=== PATIENT | female | born 1975 | race Hispanic/Latino ===

== ENCOUNTER 2016-09-25 05:45 | Inpatient (IN) | payer OTHER ==
[2016-09-25 06:44] LABS: Hematocrit 41.3 % (30.3-42.9); Hemoglobin 13.5 gm/dl (10.1-14.3); Mean Corpuscular HGB Conc 33 % (30-34); Mean Corpuscular Volume 79 fl (79-97); Platelet Count 292 K/mm3 (140-440); Red Blood Count 5.23 M/mm3 (3.65-5.03); Red Cell Distribution Width 15.9 % (13.2-15.2)
[2016-09-25 06:53] LABS: Mean Corpuscular Hemoglobin 26 pg (28-32); White Blood Count 24.2 K/mm3 (4.5-11.0)
[2016-09-25 07:02] LABS: Anion Gap 21 mmol/L; BUN/Creatinine Ratio 7.69; Blood Urea Nitrogen 10 mg/dL (7-17); Calcium 9.2 mg/dL (8.4-10.2); Carbon Dioxide 23 mmol/L (22-30); Chloride 92.8 mmol/L (98-107); Glucose 153 mg/dL (65-100); Potassium 3.5 mmol/L (3.6-5.0); Sodium 133 mmol/L (137-145)
[2016-09-25 08:13] LABS: Bacteria,Urine 1+ /HPF (Negative); Bilirubin,Urine NEG (Negative); Blood,Urine MOD (Negative); Ketones,Urine NEG (Negative); Leukocyte Esterase,Urine LG (Negative); Mucus,Urine FEW /HPF; Nitrite,Urine NEG (Negative); Urobilinogen,Urine < 2.0 mg/dL (<2.0)
[2016-09-25 08:41] LABS: Basophils % (Manual) 0 % (0.0-1.8); Blastocytes % (Manual) 0 %; Eosinophils % (Manual) 0 % (0.0-4.3); Hypochromasia 1+
[2016-09-25 08:42] LABS: Diff Status Complete
[2016-09-25] MEDS ORDERED: NACL 0.9% 1000 ML 1,000 ML IV ONE ×4 (08:53→17:00)
[2016-09-25] MEDS ORDERED: LEVAQUIN 750MG/150ML 750 MG/150 ML BAG IV ONE (08:54)
[2016-09-25] MEDS ORDERED: TORADOL IV ONE (09:01)
[2016-09-25] MEDS ORDERED: SUBLIMAZE IV ONE (09:01)
[2016-09-25] MEDS ORDERED: REGLAN IV ONE (09:01)
--- NOTE | 2016-09-25 09:06 | Admit Criteria Form ---
<FLORA BARNHART - Last Filed: 09/25/16 11:01> Admission Criteria Documentation: SEPSIS and OTHER FEBRILE ILLNESS, W/O FOCAL INFECTION Clinical Indications for Admission to Inpatient Care ( Place 'X' for any and all applicable criteria): Admission is indicated for ANY ONE of the following (1)(2)(3)(4): [X] I. Bacteremia []II. Suspected or identified specific infection requiring hospitalization (eg, meningitis, endocarditis) [ ]III. Hemodynamic instability [ ]IV. Altered mental status [ ]V. Failure or unavailability of outpatient antimicrobial treatment [ ]. Hypoxemia [ ]VII. Seizures [ ]VIII. High-risk febrile neutropenia [ ]IX. Need for parenteral antibiotic in patient who is likely to abuse vascular access device (eg, injection drug user) [A](7) [ ]X. Temperature greater than 104.9 degrees F (40.5 degrees C) (oral) [X]XI. Inpatient admission required rather than observation care because of ANY ONE of the following: [X]1) Specific infection identified that is too severe for outpatient treatment or observation care trial [ ]2) Metabolic disorder (eg, hypoglycemia, hyperglycemia, metabolic acidosis) that is severe or persistent [ ]3) Temperature greater than 103.1 degrees F (39.5 degrees C) ( oral) that is not responsive to observation care treatment [ ]4) IV fluid to replace significant ongoing (eg, for over 24 hours) losses (> 3 L/m2 per day) [ ]5) Supplemental oxygen or respiratory treatments for over 24 hours that is performable only in acute inpatient setting [ ]6) Parenteral nutrition regimen need that must be implemented on inpatient basis [ ]7) Strict or protective (eg, laminar flow) isolation [ ]8) Other condition, treatment or monitoring requiring inpatient admission Extended stay beyond goal length of stay may be needed for(1)(3) [ ]a) Sepsis or septic shock(22) [ ]b) Positive blood cultures [ ]c) Insufficient oral intake [ ]d) High-risk febrile neutropenia(29)(30) [ ]e) Continued fever and clinical instability [ ]f) Clinically active comorbid illness (e.g,heart failure, renal failure , diabetes) The original [facility] content created by Raul Hector has been revised. The portions of the content which have been revised are identified through the use of italic text or in bold, and [facility] has neither reviewed nor approved the modified material. All other unmodified content is copyright [facility]. Please see references footnoted in the original [facility] edition 2016 Admission Criteria Met: Yes <TANIA DARNELL M - Last Filed: 09/25/16 16:47> Admission Criteria Documentation: PATIENT DOES NOT HAVE CONFIRMED BACTEREMIA, BLOOD CULTURES STILL PENDING BEING ADMITTED FOR SEPSIS DUE TO UTI, AND SEPSIS WITH HYPOTENSION. Admission Criteria Met: Yes
--- NOTE | 2016-09-25 09:08 | Emergency Department Report ---
HPI - General Chief Complaint: Urogenital-Female Time Seen by Provider: 09/25/16 08:52 - HPI HPI: Room 10 The patient is a 41-year-old female presenting with a chief complaint of dysuria and back pain. The patient states for 1 week she has had dysuria. The patient states approximately 3 days ago she developed pain in the left back which then spread to encompass both sides. Today she developed a subjective fever associated with chills. Patient describes the pain as sharp and throbbing in nature. Patient admits to nausea but denies vomiting or diarrhea. The patient currently gives her pain a score of 7/10 Location: Bilateral flanks Duration: One week Quality: Sharp and throbbing Severity:7/10 Modifying factors: [see above] Context: [see above] Mode of transportation: Unknown ED Past Medical Hx - Past Medical History Previous Medical History?: No - Surgical History Past Surgical History?: No - Family History Family history: no significant - Social History Smoking Status: Current Every Day Smoker (one pack per day) Substance Use Type: None ED Review of Systems ROS: Stated complaint: BACK PAIN/PAINFUL URINATION/FEVER/SOB Other details as noted in HPI Comment: All other systems reviewed and negative Constitutional: chills, fever (subjective) Eyes: denies: eye pain, eye discharge, vision change ENT: denies: ear pain, throat pain Respiratory: denies: cough, shortness of breath, wheezing Cardiovascular: denies: chest pain, palpitations Endocrine: no symptoms reported Gastrointestinal: nausea. denies: abdominal pain, vomiting, diarrhea Genitourinary: dysuria. denies: urgency, discharge Musculoskeletal: back pain Skin: denies: rash, lesions Neurological: denies: headache, weakness, paresthesias Psychiatric: denies: anxiety, depression Hematological/Lymphatic: denies: easy bleeding, easy bruising Physical Exam - Physical Exam Vital Signs: Vital Signs 09/25/16 09/25/16 09/25/16 05:57 06:43 06:50 Temperature 98.3 F Pulse Rate 132 H 126 H Respiratory 28 H 20 18 Rate Blood Pressure 125/82 113/72 Blood Pressure [Right] O2 Sat by Pulse 98 96 96 Oximetry 09/25/16 08:17 Temperature Pulse Rate 120 H Respiratory 22 Rate Blood Pressure Blood Pressure 117/67 [Right] O2 Sat by Pulse 96 Oximetry Physical Exam: GENERAL: The patient is well-developed well-nourished female lying on stretcher not appearing to be in acute distress. [] HEENT: Normocephalic. Atraumatic. Extraocular motions are intact. Patient has moist mucous membranes. NECK: Supple. Trachea midline CHEST/LUNGS: Clear to auscultation. There is no respiratory distress noted. HEART/CARDIOVASCULAR: Regular. There is tachycardia. There is no gallop rub or murmur. ABDOMEN: Abdomen is soft, nontender. Patient has normal bowel sounds. There is no abdominal distention. SKIN: There is no rash. There is no edema. There is no diaphoresis. NEURO: The patient is awake, alert, and oriented. The patient is cooperative. The patient has normal speech MUSCULOSKELETAL: There is bilateral CVA tenderness. There is no evidence of acute injury. ED Course Vital Signs 09/25/16 09/25/16 09/25/16 05:57 06:43 06:50 Temperature 98.3 F Pulse Rate 132 H 126 H Respiratory 28 H 20 18 Rate Blood Pressure 125/82 113/72 Blood Pressure [Right] O2 Sat by Pulse 98 96 96 Oximetry 09/25/16 08:17 Temperature Pulse Rate 120 H Respiratory 22 Rate Blood Pressure Blood Pressure 117/67 [Right] O2 Sat by Pulse 96 Oximetry ED Medical Decision Making - Lab Data Result diagrams: 09/25/16 06:34 09/25/16 06:34 Laboratory Tests 09/25/16 09/25/16 09/25/16 06:34 06:34 06:34 WBC 24.2 H RBC 5.23 H Hgb 13.5 Hct 41.3 MCV 79 MCH 26 L MCHC 33 RDW 15.9 H Plt Count 292 Add Manual Diff Complete Total Counted 100 Seg Neutrophils % Packaging Engineer Seg Neuts % (Manual) 84.0 H Band Neutrophils % 10.0 Lymphocytes % (Manual) 4.0 L Reactive Lymphs % (Man) 0 Monocytes % (Manual) 2.0 Eosinophils % (Manual) 0 Basophils % (Manual) 0 Metamyelocytes % 0 Myelocytes % 0 Promyelocytes % 0 Blast Cells % 0 Nucleated RBC % Not Reportable Seg Neutrophils # Man 20.3 H Band Neutrophils # 2.4 Lymphocytes # (Manual) 1.0 L Abs React Lymphs (Man) 0.0 Monocytes # (Manual) 0.5 Eosinophils # (Manual) 0.0 Basophils # (Manual) 0.0 Metamyelocytes # 0.0 Myelocytes # 0.0 Promyelocytes # 0.0 Blast Cells # 0.0 WBC Morphology Not Reportable Hypersegmented Neuts Not Reportable Hyposegmented Neuts Not Reportable Hypogranular Neuts Not Reportable Smudge Cells Not Reportable Toxic Granulation Not Reportable Toxic Vacuolation Not Reportable Dohle Bodies Not Reportable Pelger-Huet Anomaly Not Reportable Norm Rods Not Reportable Platelet Estimate Appears normal Clumped Platelets Not Reportable Plt Clumps, EDTA Not Reportable Large Platelets Not Reportable Giant Platelets Not Reportable Platelet Satelliting Not Reportable Plt Morphology Comment Not Reportable RBC Morphology Not Reportable Dimorphic RBCs Not Reportable Polychromasia Not Reportable Hypochromasia 1+ Poikilocytosis Not Reportable Anisocytosis Not Reportable Microcytosis Not Reportable Macrocytosis Not Reportable Spherocytes Not Reportable Pappenheimer Bodies Not Reportable Sickle Cells Not Reportable Target Cells Not Reportable Tear Drop Cells Not Reportable Ovalocytes Not Reportable Helmet Cells Not Reportable [place] Bodies Not Reportable [place] Rings Not Reportable [place] Cells Not Reportable Bite Cells Not Reportable Crenated Cell Not Reportable Elliptocytes Not Reportable Acanthocytes (Spur) Not Reportable Rouleaux Not Reportable Hemoglobin C Crystals Not Reportable Schistocytes Not Reportable Malaria parasites Not Reportable Nj Bodies Not Reportable Hem Pathologist Commnt No Sodium 133 L Potassium 3.5 L Chloride 92.8 L Carbon Dioxide 23 Anion Gap 21 BUN 10 Creatinine 1.3 H Estimated GFR 46 BUN/Creatinine Ratio 7.69 Glucose 153 H Lactic Acid Calcium 9.2 Troponin T < 0.010 Urine Color Yellow Urine Turbidity Slightly-cloudy Urine pH 6.0 Ur Specific [place] 1.005 Urine Protein 100 mg/dl Urine Glucose (UA) Neg Urine Ketones Neg Urine Blood Mod Urine Nitrite Neg Ur Reducing Substances Not Reportable Urine Bilirubin Neg Urine Ictotest Not Reportable Urine Urobilinogen < 2.0 Ur Leukocyte Esterase Lg Urine WBC (Auto) 91.0 H Urine RBC (Auto) 6.0 U Epithel Cells (Auto) 8.0 Urine Bacteria (Auto) 1+ Urine Mucus Few Urine HCG, Qual Negative 09/25/16 06:34 WBC RBC Hgb Hct MCV MCH MCHC RDW Plt Count Add Manual Diff Total Counted Seg Neutrophils % Seg Neuts % (Manual) Band Neutrophils % Lymphocytes % (Manual) Reactive Lymphs % (Man) Monocytes % (Manual) Eosinophils % (Manual) Basophils % (Manual) Metamyelocytes % Myelocytes % Promyelocytes % Blast Cells % Nucleated RBC % Seg Neutrophils # Man Band Neutrophils # Lymphocytes # (Manual) Abs React Lymphs (Man) Monocytes # (Manual) Eosinophils # (Manual) Basophils # (Manual) Metamyelocytes # Myelocytes # Promyelocytes # Blast Cells # WBC Morphology Hypersegmented Neuts Hyposegmented Neuts Hypogranular Neuts Smudge Cells Toxic Granulation Toxic Vacuolation Dohle Bodies Pelger-Huet Anomaly Norm Rods Platelet Estimate Clumped Platelets Plt Clumps, EDTA Large Platelets Giant Platelets Platelet Satelliting Plt Morphology Comment RBC Morphology Dimorphic RBCs Polychromasia Hypochromasia Poikilocytosis Anisocytosis Microcytosis Macrocytosis Spherocytes Pappenheimer Bodies Sickle Cells Target Cells Tear Drop Cells Ovalocytes Helmet Cells Walker-[place] Bodies [place] Rings [place] Cells Bite Cells Crenated Cell Elliptocytes Acanthocytes (Spur) Rouleaux Hemoglobin C Crystals Schistocytes Malaria parasites Nj Bodies Hem Pathologist Commnt Sodium Potassium Chloride Carbon Dioxide Anion Gap BUN Creatinine Estimated GFR BUN/Creatinine Ratio Glucose Lactic Acid 3.0 H* Calcium Troponin T Urine Color Urine Turbidity Urine pH Ur Specific [place] Urine Protein Urine Glucose (UA) Urine Ketones Urine Blood Urine Nitrite Ur Reducing Substances Urine Bilirubin Urine Ictotest Urine Urobilinogen Ur Leukocyte Esterase Urine WBC (Auto) Urine RBC (Auto) U Epithel Cells (Auto) Urine Bacteria (Auto) Urine Mucus Urine HCG, Qual - Differential Diagnosis : Nephritis, UTI Critical care attestation.: If time is entered above; I have spent that time in minutes in the direct care of this critically ill patient, excluding procedure time. ED Disposition Clinical Impression: Acute pyelonephritis, Leukocytosis, Bilateral flank pain Disposition: OP ADMITTED IP TO THIS HOSP Is pt being admited?: Yes Does the pt Need Aspirin: Yes Condition: Serious Referrals: PRIMARY CARE, [Primary Care Provider] - 3-5 Days Time of Disposition: 09:11 (hospitalist paged)
[2016-09-25] MEDS ORDERED: TYLENOL PO PRN (10:16)
[2016-09-25] MEDS ORDERED: MILK OF MAGNESIA PO PRN (10:16)
[2016-09-25] MEDS ORDERED: ZOFRAN IV PRN (10:16)
--- NOTE | 2016-09-25 10:16 | History and Physical Report ---
History of Present Illness Chief complaint: flank pain History of present illness: 41-year-old woman with no significant past medical history who presented 1 week old dysuria, in the past few days she has not developed left-sided flank pain which then spread to both flanks. She's also been complaining of subjective fever and chills. She is complaining of weakness, malaise. She notes that the flank pain is sharp 7 out of 10, and throbbing in nature. She admits to nausea but denies any vomiting or any diarrhea. Since presenting to the ER and getting some IV fluids she admits feeling better. Past History Past Medical History: No medical history Past Surgical History: No surgical history Social history: smoking (1 pack per day since age 16) Family history: no significant family history Medications and Allergies Allergies Allergy/AdvReac Type Severity Reaction Status Date / Time No Known Allergies Allergy Unverified 09/25/16 05:52 Active Meds: Active Medications Levofloxacin/Dextrose (Levaquin 750mg/150ml) 750 mg in 150 mls @ 100 mls/hr IV ONCE ONE Stop: 09/25/16 10:23 Last Admin: 09/25/16 09:18 Dose: 100 mls/hr Review of Systems All systems: negative Constitutional: fever, chills Gastrointestinal: nausea Genitourinary Female: flank pain, dysuria, other (flank pain) Exam - Constitutional Vitals: Temp Pulse Resp BP Pulse Ox 98.3 F 111 H 20 117/76 95 09/25/16 05:57 09/25/16 09:37 09/25/16 09:37 09/25/16 09:37 09/25/16 09:37 General appearance: Present: no acute distress, well-nourished, other (toxic appearance) - EENT Eyes: Present: PERRL ENT: hearing intact, clear oral mucosa - Neck Neck: Present: supple, normal ROM - Respiratory Respiratory effort: normal Respiratory: bilateral: CTA - Cardiovascular Heart Sounds: Present: S1 & S2. Absent: rub, click - Extremities Extremities: pulses symmetrical, No edema Peripheral Pulses: within normal limits - Abdominal General gastrointestinal: Present: soft, non-tender, non-distended, normal bowel sounds Female genitourinary: Present: normal - Integumentary Integumentary: Present: clear, warm, dry - Musculoskeletal Musculoskeletal: gait normal, strength equal bilaterally - Psychiatric Psychiatric: appropriate mood/affect, intact judgment & insight - Neurologic Neurologic: CNII-XII intact, moves all extremities Results - Labs CBC & Chem 7: 09/25/16 06:34 09/25/16 06:34 Labs: Laboratory Last Values WBC 24.2 K/mm3 (4.5-11.0) H 09/25/16 06:34 RBC 5.23 M/mm3 (3.65-5.03) H 09/25/16 06:34 Hgb 13.5 gm/dl (10.1-14.3) 09/25/16 06:34 Hct 41.3 % (30.3-42.9) 09/25/16 06:34 MCV 79 fl (79-97) 09/25/16 06:34 MCH 26 pg (28-32) L 09/25/16 06:34 MCHC 33 % (30-34) 09/25/16 06:34 RDW 15.9 % (13.2-15.2) H 09/25/16 06:34 Plt Count 292 K/mm3 (140-440) 09/25/16 06:34 Add Manual Diff Complete 09/25/16 06:34 Total Counted 100 09/25/16 06:34 Seg Neutrophils % Stockroom Helper 09/25/16 06:34 Seg Neuts % (Manual) 84.0 % (40.0-70.0) H 09/25/16 06:34 Band Neutrophils % 10.0 % 09/25/16 06:34 Lymphocytes % (Manual) 4.0 % (13.4-35.0) L 09/25/16 06:34 Reactive Lymphs % (Man) 0 % 09/25/16 06:34 Monocytes % (Manual) 2.0 % (0.0-7.3) 09/25/16 06:34 Eosinophils % (Manual) 0 % (0.0-4.3) 09/25/16 06:34 Basophils % (Manual) 0 % (0.0-1.8) 09/25/16 06:34 Metamyelocytes % 0 % 09/25/16 06:34 Myelocytes % 0 % 09/25/16 06:34 Promyelocytes % 0 % 09/25/16 06:34 Blast Cells % 0 % 09/25/16 06:34 Nucleated RBC % Not Reportable 09/25/16 06:34 Seg Neutrophils # Man 20.3 K/mm3 (1.8-7.7) H 09/25/16 06:34 Band Neutrophils # 2.4 K/mm3 09/25/16 06:34 Lymphocytes # (Manual) 1.0 K/mm3 (1.2-5.4) L 09/25/16 06:34 Abs React Lymphs (Man) 0.0 K/mm3 09/25/16 06:34 Monocytes # (Manual) 0.5 K/mm3 (0.0-0.8) 09/25/16 06:34 Eosinophils # (Manual) 0.0 K/mm3 (0.0-0.4) 09/25/16 06:34 Basophils # (Manual) 0.0 K/mm3 (0.0-0.1) 09/25/16 06:34 Metamyelocytes # 0.0 K/mm3 09/25/16 06:34 Myelocytes # 0.0 K/mm3 09/25/16 06:34 Promyelocytes # 0.0 K/mm3 09/25/16 06:34 Blast Cells # 0.0 K/mm3 09/25/16 06:34 WBC Morphology Not Reportable 09/25/16 06:34 Hypersegmented Neuts Not Reportable 09/25/16 06:34 Hyposegmented Neuts Not Reportable 09/25/16 06:34 Hypogranular Neuts Not Reportable 09/25/16 06:34 Smudge Cells Not Reportable 09/25/16 06:34 Toxic Granulation Not Reportable 09/25/16 06:34 Toxic Vacuolation Not Reportable 09/25/16 06:34 Dohle Bodies Not Reportable 09/25/16 06:34 Pelger-Huet Anomaly Not Reportable 09/25/16 06:34 Norm Rods Not Reportable 09/25/16 06:34 Platelet Estimate Appears normal 09/25/16 06:34 Clumped Platelets Not Reportable 09/25/16 06:34 Plt Clumps, EDTA Not Reportable 09/25/16 06:34 Large Platelets Not Reportable 09/25/16 06:34 Giant Platelets Not Reportable 09/25/16 06:34 Platelet Satelliting Not Reportable 09/25/16 06:34 Plt Morphology Comment Not Reportable 09/25/16 06:34 RBC Morphology Not Reportable 09/25/16 06:34 Dimorphic RBCs Not Reportable 09/25/16 06:34 Polychromasia Not Reportable 09/25/16 06:34 Hypochromasia 1+ 09/25/16 06:34 Poikilocytosis Not Reportable 09/25/16 06:34 Anisocytosis Not Reportable 09/25/16 06:34 Microcytosis Not Reportable 09/25/16 06:34 Macrocytosis Not Reportable 09/25/16 06:34 Spherocytes Not Reportable 09/25/16 06:34 Pappenheimer Bodies Not Reportable 09/25/16 06:34 Sickle Cells Not Reportable 09/25/16 06:34 Target Cells Not Reportable 09/25/16 06:34 Tear Drop Cells Not Reportable 09/25/16 06:34 Ovalocytes Not Reportable 09/25/16 06:34 Helmet Cells Not Reportable 09/25/16 06:34 Walker[employer] Bodies Not Reportable 09/25/16 06:34 [place] Rings Not Reportable 09/25/16 06:34 [place] Cells Not Reportable 09/25/16 06:34 Bite Cells Not Reportable 09/25/16 06:34 Crenated Cell Not Reportable 09/25/16 06:34 Elliptocytes Not Reportable 09/25/16 06:34 Acanthocytes (Spur) Not Reportable 09/25/16 06:34 Rouleaux Not Reportable 09/25/16 06:34 Hemoglobin C Crystals Not Reportable 09/25/16 06:34 Schistocytes Not Reportable 09/25/16 06:34 Malaria parasites Not Reportable 09/25/16 06:34 Nj Bodies Not Reportable 09/25/16 06:34 Hem Pathologist Commnt No 09/25/16 06:34 Sodium 133 mmol/L (137-145) L 09/25/16 06:34 Potassium 3.5 mmol/L (3.6-5.0) L 09/25/16 06:34 Chloride 92.8 mmol/L (98-107) L 09/25/16 06:34 Carbon Dioxide 23 mmol/L (22-30) 09/25/16 06:34 Anion Gap 21 mmol/L 09/25/16 06:34 BUN 10 mg/dL (7-17) 09/25/16 06:34 Creatinine 1.3 mg/dL (0.7-1.2) H 09/25/16 06:34 Estimated GFR 46 ml/min 09/25/16 06:34 BUN/Creatinine Ratio 7.69 % 09/25/16 06:34 Glucose 153 mg/dL (65-100) H 09/25/16 06:34 Lactic Acid 3.0 mmol/L (0.7-2.0) H* 09/25/16 06:34 Calcium 9.2 mg/dL (8.4-10.2) 09/25/16 06:34 Troponin T < 0.010 ng/mL (0.00-0.029) 09/25/16 08:50 Urine Color Yellow (Yellow) 09/25/16 06:34 Urine Turbidity Slightly-cloudy (Clear) 09/25/16 06:34 Urine pH 6.0 (5.0-7.0) 09/25/16 06:34 Ur Specific [place] 1.005 (1.003-1.030) 09/25/16 06:34 Urine Protein 100 mg/dl mg/dL (Negative) 09/25/16 06:34 Urine Glucose (UA) Neg mg/dL (Negative) 09/25/16 06:34 Urine Ketones Neg mg/dL (Negative) 09/25/16 06:34 Urine Blood Mod (Negative) 09/25/16 06:34 Urine Nitrite Neg (Negative) 09/25/16 06:34 Ur Reducing Substances Not Reportable 09/25/16 06:34 Urine Bilirubin Neg (Negative) 09/25/16 06:34 Urine Ictotest Not Reportable 09/25/16 06:34 Urine Urobilinogen < 2.0 mg/dL (<2.0) 09/25/16 06:34 Ur Leukocyte Esterase Lg (Negative) 09/25/16 06:34 Urine WBC (Auto) 91.0 /HPF (0.0-6.0) H 09/25/16 06:34 Urine RBC (Auto) 6.0 /HPF (0.0-6.0) 09/25/16 06:34 U Epithel Cells (Auto) 8.0 /HPF (0-13.0) 09/25/16 06:34 Urine Bacteria (Auto) 1+ /HPF (Negative) 09/25/16 06:34 Urine Mucus Few /HPF 09/25/16 06:34 Urine HCG, Qual Negative (Negative) 09/25/16 06:34 Assessment and Plan Assessment and plan: 41-year-old woman with no significant past medical history who presented one week of dysuria which progressed to left-sided flank pain fevers and chills. Found to have sepsis due to UTI/pyelonephritis 1. Sepsis with hypotension Hypotension is responding to IV fluids Follow sepsis protocol, IV fluids, antibiotics. Blood and urine cultures, continue antibiotics 2. UTI Continue antibiotics, follow up urine cultures 3. Hypokalemia Replete IV 4. Vasomotor nephropathy IV fluids have been initiated 5. Hyponatremia normal saline 6. Nicotine abuse Patient was counseled, nicotine patch is offered Plan of care discussed with patient/family: Yes
[2016-09-25] MEDS ORDERED: NACL 0.9% 1000 ML 1,000 ML ONE (10:41)
[2016-09-25] MEDS ORDERED: DULCOLAX PR PRN (11:00)
[2016-09-25] MEDS ORDERED: NACL 0.9% 1000 ML 1,000 ML with KCL 20 MEQ IV SCH (11:00)
[2016-09-25] MEDS: PERCOCET 5/325 PO PRN ×2 (12:36→21:40)
[2016-09-25] MEDS: NS/KCL 20MEQ 20 MEQ/1,000 ML BAG IV SCH ×2 (12:38→23:34)
[2016-09-25] MEDS: HABITROL TD SCH (15:14)
[2016-09-26] MEDS: PERCOCET 5/325 PO PRN ×4 (03:37→23:12)
[2016-09-26 06:39] LABS: Basophils % (Auto) 0.3 % (0.0-1.8); Hematocrit 34.5 % (30.3-42.9); Mean Corpuscular HGB Conc 32 % (30-34); Mean Corpuscular Volume 80 fl (79-97); Platelet Count 223 K/mm3 (140-440); Red Blood Count 4.29 M/mm3 (3.65-5.03); Red Cell Distribution Width 16.4 % (13.2-15.2); White Blood Count 15.9 K/mm3 (4.5-11.0)
[2016-09-26 06:40] LABS: Mean Corpuscular Hemoglobin 26 pg (28-32)
[2016-09-26 06:52] LABS: BUN/Creatinine Ratio 8.57; Calcium 7.3 mg/dL (8.4-10.2); Chloride 101.9 mmol/L (98-107); Potassium 3.5 mmol/L (3.6-5.0)
[2016-09-26] MEDS: HABITROL TD SCH (09:14)
[2016-09-26] MEDS: NS/KCL 20MEQ 20 MEQ/1,000 ML BAG IV SCH ×2 (09:15→21:14)
[2016-09-26] MEDS ORDERED: LEVAQUIN 750MG/150ML 750 MG/150 ML BAG IV SCH (10:00)
[2016-09-26] MEDS ORDERED: K-DUR PO ONE (11:00)
[2016-09-26] MEDS: MORPHINE IV PRN (15:01)
--- NOTE | 2016-09-26 16:05 | Progress Note ---
Assessment and Plan Assessment and plan: 41-year-old woman with no significant past medical history who presented one week of dysuria which progressed to left-sided flank pain fevers and chills. Found to have sepsis due to UTI/pyelonephritis 1. Sepsis with hypotension Hypotension has resolved with IV fluids Follow sepsis protocol, IV fluids, antibiotics. Blood and urine cultures, continue antibiotics 2. UTI Continue antibiotics, urine cultures were taken after patient had already received antibiotics before cultures were and therefore it is nondiagnostic. Will be treated with empiric antibiotics 3. Hypokalemia Replete IV and by mouth 4. Vasomotor nephropathy IV fluids have been initiated 5. Hyponatremia improved with normal saline 6. Nicotine abuse Patient was counseled, continue nicotine patch History Interval history: continues to have flank pain in both sides, had fever this am Hospitalist Physical - Physical exam Narrative exam: General appearance: Present: no acute distress, well-nourished, other (toxic appearance) - EENT Eyes: Present: PERRL ENT: hearing intact, clear oral mucosa - Neck Neck: Present: supple, normal ROM - Respiratory Respiratory effort: normal Respiratory: bilateral: CTA - Cardiovascular Heart Sounds: Present: S1 & S2. Absent: rub, click - Extremities Extremities: pulses symmetrical, No edema Peripheral Pulses: within normal limits - Abdominal General gastrointestinal: Present: soft, non-tender, non-distended, normal bowel sounds Female genitourinary: Present: normal - Integumentary Integumentary: Present: clear, warm, dry - Musculoskeletal Musculoskeletal: gait normal, strength equal bilaterally - Psychiatric Psychiatric: appropriate mood/affect, intact judgment & insight - Neurologic Neurologic: CNII-XII intact, moves all extremities - Constitutional Vitals: Temp Pulse Resp BP Pulse Ox 101.8 F H 95 H 18 129/60 100 09/26/16 07:55 09/26/16 07:55 09/26/16 07:55 09/26/16 07:55 09/26/16 10:00 General appearance: Present: no acute distress, well-nourished, other (toxic appearance) Results - Labs CBC & Chem 7: 09/26/16 06:11 09/26/16 06:11 Labs: Laboratory Last Values WBC 15.9 K/mm3 (4.5-11.0) H 09/26/16 06:11 RBC 4.29 M/mm3 (3.65-5.03) 09/26/16 06:11 Hgb 11.0 gm/dl (10.1-14.3) 09/26/16 06:11 Hct 34.5 % (30.3-42.9) D 09/26/16 06:11 MCV 80 fl (79-97) 09/26/16 06:11 MCH 26 pg (28-32) L 09/26/16 06:11 MCHC 32 % (30-34) 09/26/16 06:11 RDW 16.4 % (13.2-15.2) H 09/26/16 06:11 Plt Count 223 K/mm3 (140-440) 09/26/16 06:11 Lymph % (Auto) 6.9 % (13.4-35.0) L 09/26/16 06:11 [place] % (Auto) 6.2 % (0.0-7.3) 09/26/16 06:11 Eos % (Auto) 1.0 % (0.0-4.3) 09/26/16 06:11 Baso % (Auto) 0.3 % (0.0-1.8) 09/26/16 06:11 Lymph # 1.1 K/mm3 (1.2-5.4) L 09/26/16 06:11 [place] # 1.0 K/mm3 (0.0-0.8) H 09/26/16 06:11 Eos # 0.2 K/mm3 (0.0-0.4) 09/26/16 06:11 Baso # 0.0 K/mm3 (0.0-0.1) 09/26/16 06:11 Add Manual Diff Complete 09/25/16 06:34 Total Counted 100 09/25/16 06:34 Seg Neutrophils % 85.6 % (40.0-70.0) H 09/26/16 06:11 Seg Neuts % (Manual) 84.0 % (40.0-70.0) H 09/25/16 06:34 Band Neutrophils % 10.0 % 09/25/16 06:34 Lymphocytes % (Manual) 4.0 % (13.4-35.0) L 09/25/16 06:34 Reactive Lymphs % (Man) 0 % 09/25/16 06:34 Monocytes % (Manual) 2.0 % (0.0-7.3) 09/25/16 06:34 Eosinophils % (Manual) 0 % (0.0-4.3) 09/25/16 06:34 Basophils % (Manual) 0 % (0.0-1.8) 09/25/16 06:34 Metamyelocytes % 0 % 09/25/16 06:34 Myelocytes % 0 % 09/25/16 06:34 Promyelocytes % 0 % 09/25/16 06:34 Blast Cells % 0 % 09/25/16 06:34 Nucleated RBC % Not Reportable 09/25/16 06:34 Seg Neutrophils # 13.6 K/mm3 (1.8-7.7) H 09/26/16 06:11 Seg Neutrophils # Man 20.3 K/mm3 (1.8-7.7) H 09/25/16 06:34 Band Neutrophils # 2.4 K/mm3 09/25/16 06:34 Lymphocytes # (Manual) 1.0 K/mm3 (1.2-5.4) L 09/25/16 06:34 Abs React Lymphs (Man) 0.0 K/mm3 09/25/16 06:34 Monocytes # (Manual) 0.5 K/mm3 (0.0-0.8) 09/25/16 06:34 Eosinophils # (Manual) 0.0 K/mm3 (0.0-0.4) 09/25/16 06:34 Basophils # (Manual) 0.0 K/mm3 (0.0-0.1) 09/25/16 06:34 Metamyelocytes # 0.0 K/mm3 09/25/16 06:34 Myelocytes # 0.0 K/mm3 09/25/16 06:34 Promyelocytes # 0.0 K/mm3 09/25/16 06:34 Blast Cells # 0.0 K/mm3 09/25/16 06:34 WBC Morphology Not Reportable 09/25/16 06:34 Hypersegmented Neuts Not Reportable 09/25/16 06:34 Hyposegmented Neuts Not Reportable 09/25/16 06:34 Hypogranular Neuts Not Reportable 09/25/16 06:34 Smudge Cells Not Reportable 09/25/16 06:34 Toxic Granulation Not Reportable 09/25/16 06:34 Toxic Vacuolation Not Reportable 09/25/16 06:34 Dohle Bodies Not Reportable 09/25/16 06:34 Pelger-Huet Anomaly Not Reportable 09/25/16 06:34 Norm Rods Not Reportable 09/25/16 06:34 Platelet Estimate Appears normal 09/25/16 06:34 Clumped Platelets Not Reportable 09/25/16 06:34 Plt Clumps, EDTA Not Reportable 09/25/16 06:34 Large Platelets Not Reportable 09/25/16 06:34 Giant Platelets Not Reportable 09/25/16 06:34 Platelet Satelliting Not Reportable 09/25/16 06:34 Plt Morphology Comment Not Reportable 09/25/16 06:34 RBC Morphology Not Reportable 09/25/16 06:34 Dimorphic RBCs Not Reportable 09/25/16 06:34 Polychromasia Not Reportable 09/25/16 06:34 Hypochromasia 1+ 09/25/16 06:34 Poikilocytosis Not Reportable 09/25/16 06:34 Anisocytosis Not Reportable 09/25/16 06:34 Microcytosis Not Reportable 09/25/16 06:34 Macrocytosis Not Reportable 09/25/16 06:34 Spherocytes Not Reportable 09/25/16 06:34 Pappenheimer Bodies Not Reportable 09/25/16 06:34 Sickle Cells Not Reportable 09/25/16 06:34 Target Cells Not Reportable 09/25/16 06:34 Tear Drop Cells Not Reportable 09/25/16 06:34 Ovalocytes Not Reportable 09/25/16 06:34 Helmet Cells Not Reportable 09/25/16 06:34 [place] Bodies Not Reportable 09/25/16 06:34 [place] Rings Not Reportable 09/25/16 06:34 Mari Cells Not Reportable 09/25/16 06:34 Bite Cells Not Reportable 09/25/16 06:34 Crenated Cell Not Reportable 09/25/16 06:34 Elliptocytes Not Reportable 09/25/16 06:34 Acanthocytes (Spur) Not Reportable 09/25/16 06:34 Rouleaux Not Reportable 09/25/16 06:34 Hemoglobin C Crystals Not Reportable 09/25/16 06:34 Schistocytes Not Reportable 09/25/16 06:34 Malaria parasites Not Reportable 09/25/16 06:34 [place]j Bodies Not Reportable 09/25/16 06:34 Hem Pathologist Commnt No 09/25/16 06:34 Sodium 137 mmol/L (137-145) 09/26/16 06:11 Potassium 3.5 mmol/L (3.6-5.0) L 09/26/16 06:11 Chloride 101.9 mmol/L (98-107) 09/26/16 06:11 Carbon Dioxide 22 mmol/L (22-30) 09/26/16 06:11 Anion Gap 17 mmol/L 09/26/16 06:11 BUN 12 mg/dL (7-17) 09/26/16 06:11 Creatinine 1.4 mg/dL (0.7-1.2) H 09/26/16 06:11 Estimated GFR 42 ml/min 09/26/16 06:11 BUN/Creatinine Ratio 8.57 % 09/26/16 06:11 Glucose 97 mg/dL (65-100) 09/26/16 06:11 Lactic Acid 1.2 mmol/L (0.7-2.0) 09/25/16 14:44 Calcium 7.3 mg/dL (8.4-10.2) L D 09/26/16 06:11 Troponin T < 0.010 ng/mL (0.00-0.029) 09/25/16 12:55 Urine Color Yellow (Yellow) 09/25/16 06:34 Urine Turbidity Slightly-cloudy (Clear) 09/25/16 06:34 Urine pH 6.0 (5.0-7.0) 09/25/16 06:34 Ur Specific [place] 1.005 (1.003-1.030) 09/25/16 06:34 Urine Protein 100 mg/dl mg/dL (Negative) 09/25/16 06:34 Urine Glucose (UA) Neg mg/dL (Negative) 09/25/16 06:34 Urine Ketones Neg mg/dL (Negative) 09/25/16 06:34 Urine Blood Mod (Negative) 09/25/16 06:34 Urine Nitrite Neg (Negative) 09/25/16 06:34 Ur Reducing Substances Not Reportable 09/25/16 06:34 Urine Bilirubin Neg (Negative) 09/25/16 06:34 Urine Ictotest Not Reportable 09/25/16 06:34 Urine Urobilinogen < 2.0 mg/dL (<2.0) 09/25/16 06:34 Ur Leukocyte Esterase Lg (Negative) 09/25/16 06:34 Urine WBC (Auto) 91.0 /HPF (0.0-6.0) H 09/25/16 06:34 Urine RBC (Auto) 6.0 /HPF (0.0-6.0) 09/25/16 06:34 U Epithel Cells (Auto) 8.0 /HPF (0-13.0) 09/25/16 06:34 Urine Bacteria (Auto) 1+ /HPF (Negative) 09/25/16 06:34 Urine Mucus Few /HPF 09/25/16 06:34 Urine HCG, Qual Negative (Negative) 09/25/16 06:34
--- NOTE | 2016-09-26 16:37 | XRay Report ---
CHEST TWO VIEWS: 09/25/16 10:16:00 CLINICAL: Fever. COMPARISON: None FINDINGS: Normal heart and pulmonary vasculature. The lungs are normally expanded and clear.Moderate degenerative change in the spine. IMPRESSION: No acute cardiopulmonary process.No pneumonia.
[2016-09-26] MEDS ORDERED: MIRALAX 3350 PO PRN (17:41)
[2016-09-26] MEDS ORDERED: SENOKOT S PO SCH (22:00)
[2016-09-27] MEDS ORDERED: XANAX PO ONE (06:14)
[2016-09-27] MEDS: MORPHINE IV PRN (06:25)
[2016-09-27] MEDS: NS/KCL 20MEQ 20 MEQ/1,000 ML BAG IV SCH (06:26)
[2016-09-27 08:46] LABS: Magnesium 1.8 mg/dL (1.7-2.3)
[2016-09-27 08:53] VITALS: BP 149/69
[2016-09-27 09:00] LABS: Potassium 4.4 mmol/L (3.6-5.0)
[2016-09-27] MEDS ORDERED: LEVAQUIN 750MG/150ML 750 MG/150 ML BAG IV SCH (10:00)
[2016-09-27] MEDS ORDERED: LEVAQUIN 500MG/100ML 500 MG/100 ML BAG IV SCH (10:00)
[2016-09-27 10:08] LABS: Hemoglobin 10.9 gm/dl (10.1-14.3); Mean Corpuscular HGB Conc 32 % (30-34); Mean Corpuscular Volume 81 fl (79-97); Platelet Count 246 K/mm3 (140-440); Red Blood Count 4.22 M/mm3 (3.65-5.03); Red Cell Distribution Width 16.4 % (13.2-15.2); White Blood Count 11.1 K/mm3 (4.5-11.0)
[2016-09-27 10:12] LABS: Mean Corpuscular Hemoglobin 26 pg (28-32)
[2016-09-27 10:15] LABS: BUN/Creatinine Ratio 9.09; Calcium 8.3 mg/dL (8.4-10.2); Chloride 101.8 mmol/L (98-107); Potassium 4.4 mmol/L (3.6-5.0)
--- NOTE | 2016-09-27 14:45 | Discharge Summary ---
Providers - Providers Date of Admission: 09/25/16 10:16 Attending physician: TANIA DARNELL MD Primary care physician: MICHAEL MOON MD Hospitalization Condition: Serious Disposition: STILL A PATIENT Core Measure Documentation - Palliative Care Palliative Care/ Comfort Measures: Not Applicable Exam - Constitutional Vitals: Temp Pulse Resp BP Pulse Ox 101.3 F H 95 H 18 149/69 98 09/27/16 08:00 09/27/16 08:00 09/27/16 08:00 09/27/16 08:00 09/27/16 08:00 Plan Follow up with: MICHAEL MOON MD [Primary Care Provider] - 3-5 Days
== END 2016-09-27 10:05 | disposition left against medical advice (07) | DRG 871 ==
LOC: ED 05:45 → 3A 10:16
PROVIDERS: ADMIT Internal Medicine; ATTEND Internal Medicine
DX: A41.9 Sepsis, unspecified organism (principal); N17.0 Acute kidney failure with tubular necrosis; N10 Acute pyelonephritis; E87.1 Hypo-osmolality and hyponatremia; N39.0 Urinary tract infection, site not specified; F17.210 Nicotine dependence, cigarettes, uncomplicated; I95.9 Hypotension, unspecified; E87.6 Hypokalemia; Z71.6 Tobacco abuse counseling
CPT/HCPCS: 36415; 71020; 80048; 81001; 81025; 82140; 83735; 84132; 84484; 85007; 85025; 85027; 87040; 87086; 93005; 93010; 96365; 96366; 96375; 99406; J1885; J1956; J2270; J2405; J2765; J3010; J7030